=== PATIENT | male | born 1970 | race Caucasian/White ===

== ENCOUNTER → 2017-01-06 | Outpatient (CLI) | payer MEDICAID ==
[2017-01-06 10:10] LABS: BASOPHIL % 0.3 %; HEMATOCRIT 40.7 % (37.0-53.0); HEMOGLOBIN 13.1 g/dL (12.0-17.0); IMMATURE GRANULOCYTE % 0.3 %; LYMPHOCYTE % 25.7 %; MCH 29.9 pg (27.0-34.0); MCHC 32.2 gm/dL (32.0-36.5); MCV 92.9 fl (83.0-98.0); MONOCYTE # 0.3 K/uL (0.0-1.0); MONOCYTE % 9.1 %; MPV 9.5 fl (9.4-12.4); NEUTROPHIL # (ANC) 2.4 K/uL (1.4-9.0); NEUTROPHIL % 64.6 %; NRBC % 0 /100WBC (0-0.00); PLATELET COUNT 190 K/uL (150-450); RBC 4.38 M/uL (4.00-6.00); WBC 3.7 K/uL (4.0-11.0)
== END | disposition disaster alternative care site (69) ==
LOC: LBETH 01-05 12:59
PROVIDERS: Psychiatry & Neurology Child & Adolescent Psychiatry
DX: Z51.81 Encounter for therapeutic drug level monitoring (principal); Z79.899 Other long term (current) drug therapy

== ENCOUNTER → 2017-02-10 | Outpatient (CLI) | payer MEDICAID ==
[2017-02-10 08:35] LABS: BASOPHIL % 0.3 %; HEMATOCRIT 43.9 % (37.0-53.0); HEMOGLOBIN 14.2 g/dL (12.0-17.0); IMMATURE GRANULOCYTE % 0.3 %; LYMPHOCYTE # 0.9 K/uL (0.8-4.0); LYMPHOCYTE % 26.9 %; MCH 29.6 pg (27.0-34.0); MCHC 32.3 gm/dL (32.0-36.5); MCV 91.6 fl (83.0-98.0); MONOCYTE # 0.3 K/uL (0.0-1.0); MONOCYTE % 7.8 %; MPV 9.4 fl (9.4-12.4); NEUTROPHIL # (ANC) 2.2 K/uL (1.4-9.0); NEUTROPHIL % 64.7 %; NRBC % 0 /100WBC (0-0.00); PLATELET COUNT 215 K/uL (150-450); RBC 4.79 M/uL (4.00-6.00); RDW-CV 13.2 % (11.9-14.6); WBC 3.3 K/uL (4.0-11.0)
== END | disposition disaster alternative care site (69) ==
LOC: LBETH 02-08 17:32
PROVIDERS: Psychiatry & Neurology Child & Adolescent Psychiatry
DX: Z51.81 Encounter for therapeutic drug level monitoring (principal); Z79.899 Other long term (current) drug therapy